=== PATIENT | male | born 1965 | race Caucasian/White ===

== ENCOUNTER 2019-06-09 04:14 | Emergency (ER) | payer MEDICAID, OTHER ==
[~2019-06-09] VITALS: Ht 170.2 cm; Wt 65.0 kg
[~2019-06-09 04:14] MED LIST: CLON-379; COLACE; FAMO-95; IMODIUM; LACTINEX; LISI-471; LOMOTIL; METO100T; NEPH; NIFE90TA; PATANOL; RENAGEL; TRAM50TA2 PO; [UNRECOGNIZED DRUG - CODE]; [UNRECOGNIZED DRUG - CODE]
[2019-06-09 04:30] VITALS: Ht 170.2 cm; Wt 65.0 kg
[2019-06-09] MEDS ORDERED: HYDROCODONE/APAP (10/325) TAB PO ONE (04:30)
--- NOTE | 2019-06-09 05:46 | ERD ---
ER Documentation Chief Complaint Chief Complaint LLE pain s/p bumped calf on chair, old deformity unk hx. poor historian HPI This is a 53-year-old male with left lower extremity pain for the past 4 to 5 days. He said this injury first occurred in a long-term facility but a nurse did not notice it. He went to dialysis today and he notices likely since he complained of chronic pain in the leg and sent to the ER for evaluation. Patient is being treated for cellulitis in the lower extremity. ROS All systems reviewed and are negative except as per history of present illness. Medications Home Meds Active Scripts Tramadol HCl (Tramadol HCl) 50 Mg Tablet, 50 MG PO Q4 PRN for PAIN, #20 TAB Prov:KAILEY SUAREZ 06/09/19 Reported Medications [Lomotil] No Conflict Check 01/12/10 Clonidine Hcl* (Clonidine Hcl*) 0.1 Mg Tab 01/12/10 Dextrose (D50w) 50 Ml Soln 01/12/10 [Imodium] No Conflict Check 01/12/10 Famotidine* (Pepcid* AC) 20 Mg Tablet 01/12/10 Heparin Sod (Porcine) (Heparin) 5,000 Unit/0.5 Ml Soln 01/12/10 Metoprolol (Lopressor) 100 Mg Tablet 01/12/10 Lactobacillus Acidophilus* (Lactinex*) 1 Tab Chew 01/12/10 Lisinopril* (Lisinopril*) 20 Mg Tablet 01/12/10 Multivit/Ca Carb/B Cmplx/Fa* (Tatyana-Vaibhav*) 1 Tab Tab 01/12/10 [Renagel] No Conflict Check 01/12/10 Nifedipine* (Procardia XL*) 90 Mg/Bottle Tab.osm.24 01/12/10 [Colace] No Conflict Check 01/12/10 [Patanol] No Conflict Check 01/12/10 Allergies Allergies: Coded Allergies: No Known Allergy (Unverified Allergy, Unknown, 11/26/06) PMhx/Soc History of Surgery: Yes (RIGHT FOOT AMPUTATION, AV SHUNT PLACEMENT) Hx Neurological Disorder: No Hx Respiratory Disorders: No Hx Cardiac Disorders: Yes (HTN, HYPERLIPIDEMIA) Hx Psychiatric Problems: Yes (Depression) Hx Miscellaneous Medical Probl: Yes (ESRD/dialysis, right BKA, Thyriod ds) Hx Alcohol Use: No Hx Substance Use: No Hx Tobacco Use: No Smoking Status: Unknown if ever smoked Physical Exam Vitals Vital Signs Date Temp Pulse Resp B/P (MAP) Pulse Ox O2 O2 Flow FiO2 Time Delivery Rate 06/09/19 98.6 80 18 140/65 98 04:30 (90) Physical Exam Const: No acute distress Head: Atraumatic Eyes: Normal Conjunctiva ENT: Normal External Ears, Nose and Mouth. Neck: Full range of motion. No meningismus. Resp: Clear to auscultation bilaterally Cardio: Regular rate and rhythm, no murmurs Abd: Soft, non tender, non distended. Normal bowel sounds Skin: No petechiae or rashes Back: No midline or flank tenderness Ext: Left lower extremity shows severe angulation in the midshaft of the tib- fib from approximately 30 degrees. Normal pulses noted. Neur: Awake and alert Psych: Normal Mood and Affect Results 24 hrs Current Medications Medications Dose Sig/Refugio Start Time Status Last (Trade) Ordered Route PRN Stop Time Admin Dose Reason Admin 1 tab ONCE ONCE 06/09/19 DC 06/09/19 Acetaminophen PO 04:30 05:03 / 06/09/19 04:31 Hydrocodone Bitart ([place] ()) Procedures/MDM X-ray Tib/Fib 2V Interpreted by me: Bones: Fracture of the tibia and fibula with approximately 30 to 35% angulation and displacement Joints: [No dislocation] Foreign body: [None] Splint Assessment: Neurovascularly intact post splint placement with good fit. Medical decision makin-year-old male here essentially with tib-fib fracture with approximately 4 to 5 days old. Leg is been splinted and is neurovascular intact. Patient will be discharged back to long-term facility Departure Diagnosis: Primary Impression: Tibia/fibula fracture, shaft Encounter type: initial encounter Fracture type: closed Laterality: left Qualified Codes: S82.202A - Unspecified fracture of shaft of left tibia, initial encounter for closed fracture; S82.402A - Unspecified fracture of shaft of left fibula, initial encounter for closed fracture Condition: Stable Patient Instructions: Fracture, Lower Extremity KAILEY SUAREZ Jun 09, 2019 05:46
[2019-06-09 07:54] VITALS: BP 129/69; PULSE 77; RESP 20
== END 2019-06-09 07:56 | disposition home or self-care (01) ==
LOC: E/R 04:14
DX: S82.202A Unspecified fracture of shaft of left tibia, initial encounter for closed fracture (principal); I12.0 Hypertensive chronic kidney disease with stage 5 chronic kidney disease or end stage renal disease; N18.6 End stage renal disease; S82.402A Unspecified fracture of shaft of left fibula, initial encounter for closed fracture; W22.03XA Walked into furniture, initial encounter; Y92.9 Unspecified place or not applicable; Z99.2 Dependence on renal dialysis
CPT/HCPCS: 29505; 73590; Z7502; Z7610